=== PATIENT | male | born 1985 ===

== ENCOUNTER 2018-08-27 12:44 | Emergency (ER) | payer BC, SELFPAY ==
[2018-08-27] MEDS ORDERED: Ketorolac Tromethamine 30 MG/ML VIAL ONE (13:07)
[2018-08-27 13:30] LABS: #Basophils 0.1 thou/uL (0.0-0.2); #Eosinphils 0.7 thou/uL (0.0-0.7); #Lymphocytes 2.4 thou/uL (1.20-3.40); #Monocytes 0.6 thou/uL (0.11-0.59); #Neutrophils 7.9 thou/uL (1.40-6.50); %Basophils 0.9 % (0.0-1.0); %Eosinophils 6.3 % (0.0-10.0); %Lymphocytes 20.6 % (21.0-51.0); %Monocytes 5.4 % (0.0-10.0); %Neutrophils 66.9 % (42.0-75.0); Hemoglobin 15.2 g/dL (14.0-18.0); Mean Corpuscular Hemoglobin 29.5 pg (27.0-31.0); Mean Corpuscular Volume 89.5 fL (78.0-98.0); Mean Platelet Volume 8.7 fL (7.4-10.4); Platelet Count 257 thou/uL (130-400); RBC Distribution Width 11.5 % (11.5-14.5); Red Blood Cell (RBC) Count 5.15 mill/uL (4.70-6.10); White Blood Cell (WBC) Count 11.8 thou/uL (4.8-10.8)
[2018-08-27 13:51] LABS: ALT (SGPT) 30 U/L (8-55); AST (SGOT) 27 U/L (5-34); Albumin 4.4 g/dL (3.5-5.0); Alkaline Phosphatase 95 U/L (40-150); Anion Gap 15 mmol/L (10-20); BUN (Urea Nitrogen) 18 mg/dL (8.9-20.6); Bilirubin, Total 0.4 mg/dL (0.2-1.2); Calc. Creatinine Clearance 0 mL/min (70-130); Calcium 9.9 mg/dL (7.8-10.44); Carbon Dioxide 26 mmol/L (22-29); Chloride 103 mmol/L (98-107); Estimated GFR-MDRD 89; Globulin 3.3 g/dL (2.4-3.5); Glucose 117 mg/dL (70-105); Lipase 30 U/L (8-78); Potassium 3.4 mmol/L (3.5-5.1); Protein, Total 7.7 g/dL (6.0-8.3); Sodium 141 mmol/L (136-145)
[2018-08-27] MEDS ORDERED: Morphine 4 MG/ML VIAL ONE ×2 (14:10→16:07)
--- NOTE | 2018-08-27 14:44 | CT ---
CT OF THE ABDOMEN AND PELVIS WITHOUT IV CONTRAST: INDICATION: Right lower quadrant abdominal pain. FINDINGS: There is mild to moderate right-sided hydronephrosis. There is a 3 mm stone within the right distal ureter. There is a 2 mm stone within the mid to inferior pole of the right kidney. There is a 2 mm stone within the right mid kidney. No left-sided renal stone is evident. Lung bases are clear. There is a very tiny hypodensity within segment 6 of the right hepatic lobe on image 20 series 2 nba uring 3 mm. Unopacified adrenal glands, pancreas, and the spleen appear within normal limits. There is a normal appendix within the right lower quadrant. The bladder is decompressed. Rectum and perirectal soft tissues are unremarkable-appearing. The colon is largely decompressed. No free fluid is evident. No definite acute osseous abnormality is evident. A small bone island is seen within the right aceta bulum. IMPRESSION: 1. A 3 mm distal right ureteral calculus with mild to moderate right hydronephrosis. 2. Right nephrolithiasis. 3. Tiny hypodensity within the right hepatic lobe, too small to characterize but statistically likel y reflectively of small cyst. POS: [facility]
[2018-08-27 16:38] LABS: Bilirubin Small (Negative); Blood, Urine Large (Negative); Clarity TURBID (Clear); Glucose, Urine (Dipstick) Negative (Negative); Leukocyte Negative (Negative); Nitrite Negative (Negative); Protein, Urine (Dipstick) 30 mg/dL (Neg-Trace); Specific Gravity, Urine 1.033 (1.002-1.036); Urobilinogen 0.2 mg/dL (0.2-1.0); pH, Urine 5.5 (5.0-9.0)
[2018-08-27 16:39] LABS: Bacteria/HPF None Seen HPF (None Seen); Pathc Cast-AUWi Flag 2.03 (0-2.49); Squamous Epithelial 0-3 HPF (0-3)
[2018-08-27 16:40] LABS: Yeast-AUWi Flag 132.2 (0-25.0)
[2018-08-27 16:46] LABS: RBC/HPF GREATER THAN 50-TNTC HPF (0-3); WBC/HPF 0-3 HPF (0-3)
[2018-08-27 16:47] LABS: Crystals/HPF 2+ AMORPH URATES HPF (Negative); Hyaline Casts/LPF 0-3 HYALINE CAST LPF (0-3 Hyaline)
== END 2018-08-27 17:14 | disposition home or self-care (01) ==
LOC: ERS 12:44
DX: N13.2 Hydronephrosis with renal and ureteral calculous obstruction (principal)
CPT/HCPCS: 74176; 80053; 81003; 81015; 83690; 85025; 96361; 96374; 96375; 96376; J1885; J2270